=== PATIENT | female | born 1965 | race Two or more races ===

== ENCOUNTER 2016-08-02 21:47 | Emergency (ER) | payer MEDICAID ==
[2016-08-02] MEDS ORDERED: HYDROmorphone 1 mg/mL 1mL Syr ONE (22:07)
[2016-08-02 22:14] LABS: % BASOPHILS 0.9 % (0.0-2.0); % EOSINOPHILS 0.7 % (0.0-5.0); % LYMPHOCYTES 12.7 % (20.0-50.0); % MONOCYTES 4.6 % (2.0-10.0); % NEUTROPHILS 81.1 % (40.0-80.0); HEMATOCRIT 42.6 % (35.0-45.0); HEMOGLOBIN 14.5 gm/dL (11.7-15.5); MEAN CORPUSCULAR HEMOGLOBIN 29.7 pg (27.0-31.0); MEAN CORPUSCULAR HGB CONC 34.1 pg (28.0-36.0); MEAN PLATELET VOLUME 7.8 fl; NEUTROPHILE ABSOLUTE 8.6 Th/cmm (1.8-8.0); PLATELET COUNT 169 Th/cmm (150-400); RED BLOOD COUNT 4.89 Mil/cmm (3.80-5.10); RED CELL DISTRIBUTION WIDTH 11.9 % (11.5-20.0); WHITE BLOOD COUNT 10.6 Th/cmm (4.8-10.8)
[2016-08-02] MEDS: HYDROmorphone 1 mg/mL 1mL Syr IM STA (22:16)
--- NOTE | 2016-08-02 22:16 | ED Physician Chart ---
Chief Complaint/HPI - Patient Information Date Seen:: 08/02/16 Time Seen:: 22:00 Chief Complaint:: RIGHT KNEE PAIN History of Present Illness:: THIS IS A 51 YO FEMALE WITH RECURRENT THAT STARTED AGAIN TODAY (01/04) RIGHT KNEE PAIN AND NOW UNABLE TO WALK ON IT. SHE ALSO STATES THAT SHE HAS HYPERTENSION AND DIABETES BUT STOPPED TAKING HER MEDICATIONS. SHE STATES THAT THE KNEE HAS BEEN OPERATED ON IN THE PAST. SHE DENIES FEVER, CHEST PAIN AND ABDOMINAL PAIN. Allergies:: Allergies Allergy/AdvReac Type Severity Reaction Status Date / Time No Known Allergies Allergy Verified 08/02/16 21:57 Vitals:: Vital Signs - 8 hr 08/02/16 21:50 Temp 98.1 F HR 80 RR 20 BP 182/89 O2 Sat % 97 Historian:: Patient Review:: Nurse's Note Reviewed Review of Systems - Review of Systems General/Constitutional: No fever, No chills, No weight loss, No weakness, No diaphoresis, No edema, No loss of appetite Skin: No skin lesions, No rash, No bruising Head: No headache, No light-headedness Eyes: No loss of vision, No pain, No diplopia ENT: No earache, No nasal drainage, No sore throat, No tinnitus Neck: No neck pain, No swelling, No thyromegaly, No stiffness, No mass noted Cardio Vascular: No chest pain, No palpitations, No PND, No orthopnea, No edema Pulmonary: No SOB, No cough, No sputum, No wheezing GI: No nausea, No vomiting, No diarrhea, No pain, No melena, No hematochezia, No constipation, No hematemesis G/U: No dysuria, No frequency, No hematuria Musculoskeletal: Bone or joint pain, No back pain, No muscle pain Endocrine: No polyuria, No polydipsia Psychiatric: No prior psych history, No depression, No anxiety, No suicidal ideation Hematopoietic: No bruising, No lymphadenopathy Allergic/Immuno: No urticaria, No angioedema Neurological: No syncope, No focal symptoms, No weakness, No paresthesia, No headache, No seizure, No dizziness, No confusion, No vertigo Past Medical History - Past Medical History Obtainable: Yes Past Medical History: HTN, DM Family History: None Social History: Non Smoker, No Alcohol, No Drug Use, Employed Surgical History: Cholecystectomy, other (RIGHT KNEE SURGERY) Family Medical History - Family Member Mother History Unknown: Yes Ethnicity: Living Status: Hx Family Hypertension: Yes Hx Family Diabetes: Yes Physical Exam - Physical Examination General/Constitutional: Awake, Well-developed, well-nourished, Alert, No distress, GCS 15, Non-toxic appearing, Ambulatory Head: Atraumatic Eyes: Lids, conjuctiva normal, PERRL, EOMI Skin: Nl inspection, No rash, No skin lesions, No ecchymosis, Well hydrated, No lymphadenopathy ENMT: External ears, nose nl, Nasal exam nl, Lips, teeth, gums nl Neck: Nontender, Full ROM w/o pain, No JVD, No nuchal rigidity, No bruit, No mass, No stridor Respiratory: Nl effort/Exclusion, Clear to Auscultation, No Wheeze/Rhonchi/Rales Cardio Vascular: RRR, No murmur, gallop, rubs, NL S1 S2 GI: No tenderness/rebounding/guarding, No organomegaly, No hernia, Normal BS's, Nondistended, No mass/bruits, No McBurney tenderness : No CVA tenderness Extremities: Full ROM, normal strength in all extremities, No edema, Normal digits & nails Other Extremities comments:: THE RIGHT KNEE IS SWOLLEN AND TENDER WITH PAINFUL DECREASE ROM. Neuro/Psych: Alert/oriented, DTR's symmetric, Normal sensory exam, Normal motor strength, Judgement/insight normal, Mood normal, Normal gait, No focal deficits Misc: normal gait, Normal back, No paraspinal tenderness ED Septic Shock - . Is Septic Shock (SBP<90, OR Lactate>4 mmol\L) present?: No - <6hrs of presentation: Vital Signs: Vital Signs - 8 hr 08/02/16 21:50 Temp 98.1 F HR 80 RR 20 BP 182/89 O2 Sat % 97
[2016-08-02 22:31] LABS: INR 0.91 (0.5-1.4); PROTHROMBIN TIME (TEST) 9.5 SECONDS (9.5-11.5)
[2016-08-02 22:32] LABS: CHOLESTEROL 195 mg/dL (<200); TRIGLYCERIDES 157 mg/dL (<150)
[2016-08-02 22:34] LABS: ALB/GLOB RATIO 1.1 (1.0-1.8); ALKALINE PHOSPHATASE 140 U/L (34-104); ANION GAP 9.6 (7.0-16.0); BILIRUBIN,TOTAL 0.6 mg/dL (0.3-1.0); BUN - UREA NITROGEN 22 mg/dL (7-25); BUN/CREATININE RATIO 24.4; CALCIUM SERUM 9.7 mg/dL (8.6-10.3); CARBON DIOXIDE 21.5 mEq/L (21.0-31.0); CHLORIDE 103 mEq/L (98-107); CREATININE - SERUM 0.9 mg/dL (0.6-1.2); POTASSIUM SERUM 3.1 mEq/L (3.5-5.1); SGOT 22 U/L (13-39); SGPT/ALT 24 U/L (7-52); SODIUM SERUM 131 mEq/L (136-145)
[2016-08-02 22:47] LABS: GLUCOSE 459 mg/dL (70-105)
[2016-08-02] MEDS ORDERED: Potassium Chloride 20 mEq ER Tab PO ONE (22:59)
[2016-08-02] MEDS ORDERED: INSULIN HUMAN REGULAR 100 UNITS/ML UNIT ONE (23:01)
[2016-08-02] MEDS: Potassium Chloride 20 mEq ER Tab PO ONE (23:09)
[2016-08-02] MEDS: INSULIN HUMAN REGULAR 100 UNITS/ML UNIT SUBQ ONE (23:10)
[2016-08-02 23:26] LABS: URINE BILIRUBIN NEGATIVE (NEGATIVE); URINE BLOOD TRACE (NEGATIVE); URINE COLOR YELLOW; URINE GLUCOSE (UA) 500 mg/dL (NEGATIVE); URINE KETONE NEGATIVE (NEGATIVE); URINE PH 5.5; URINE PROTEIN >300 mg/dL (NEGATIVE); URINE UROBILINOGEN 0.2 E.U./dL (0.2 - 1.0); URINE WBC 0-2 /hpf (0-5)
[2016-08-02 23:27] LABS: URINE BACTERIA OCCASIONAL /hpf (NONE SEEN); URINE EPITHELIAL CELLS FEW /lpf (FEW)
--- NOTE | 2016-08-03 11:06 | Diagnostic Imaging Report ---
Portable chest x-ray History: Pain Allowing for portable technique the heart size is normal. No focal pulmonary parenchymal processes. No hilar or mediastinal abnormalities. Impression: No acute abnormalities.
--- NOTE | 2016-08-03 11:07 | Diagnostic Imaging Report ---
Right knee (3 views) HISTORY: Pain No acute bony abnormalities. No fractures. Joint spaces appear normal. Suggestion of a suprapatellar effusion. Clinical correlation needed. A calcific density is noted adjacent to the anterior superior margin of the patella probably on a dystrophic basis. IMPRESSION: 1. No acute bony abnormalities 2. Question suprapatellar effusion. Clinical correlation needed 3. Small calcification adjacent to the anterior superior margin of the patella most likely on a dystrophic basis.
== END 2016-08-03 00:20 | disposition home or self-care (01) ==
LOC: ER 21:47
DX: M25.561 Pain in right knee (principal); I10 Essential (primary) hypertension; E11.9 Type 2 diabetes mellitus without complications; Z90.49 Acquired absence of other specified parts of digestive tract
CPT/HCPCS: 36415-UA; 71010-TC; 73562-TC-RT; 80053-TC; 80061-TC; 81001-TC; 82948-90; 83036-90; 84443-TC; 84484-TC; 85025-TC; 85610-TC; 85730-TC; 86592-TC; J1170; J1815; J2405; Z7610

== ENCOUNTER 2016-08-09 12:19 | Emergency (ER) | payer MEDICAID ==
--- NOTE | 2016-08-09 13:35 | ED Physician Chart ---
Chief Complaint/HPI - Patient Information Date Seen:: 08/09/16 Time Seen:: 13:00 Chief Complaint:: acute exacerbation of chronic right knee pain History of Present Illness:: Patient was seen at this facility one week ago and diagnosed with acute exacerbation of chronic right knee arthritis and was discharged with 1 week of ibuprofen therapy which apparently has not changed the patient's condition. There has been no worsening of the patient's condition, no fever or chills, no joint redness or increased heat, but the underlying soreness with ambulation and intermittent swelling has continued. The patient relates a history of chronic knee problems since the age of 6 with an arthroscopic procedure done in the distant past. 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 No other joints are affected. Allergies:: Allergies Allergy/AdvReac Type Severity Reaction Status Date / Time No Known Allergies Allergy Verified 08/09/16 12:44 Vitals:: Vital Signs - 8 hr 08/09/16 08/09/16 12:33 13:04 Temp 98.3 F 98.3 F HR 59 59 RR 16 16 BP 191/94 191/94 O2 Sat % 98 98 Historian:: Patient, Medical Records Review:: Nurse's Note Reviewed Review of Systems - Review of Systems General/Constitutional: No fever (the review of systems is otherwise unremarkable except those features mentioned in the history of present illness.) Past Medical History - Past Medical History Obtainable: Yes Past Medical History: HTN, DM (chronic right knee pain), Other Family History: Diabetes Melitus, HTN Social History: Non Smoker, No Alcohol, Employed Surgical History: other (arthroscopic surgery right knee) Family Medical History - Family Member Mother Ethnicity: Living Status: Hx Family Hypertension: Yes Hx Family Diabetes: Yes Physical Exam - Physical Examination General/Constitutional: Awake, Well-developed, well-nourished, Alert, GCS 15, Non-toxic appearing, Ambulatory Head: Atraumatic Skin: No rash, Well hydrated Extremities: Normal digits & nails Other Extremities comments:: Physical exam findings are limited to the right knee which is remarkable for trace visible and palpable effusion. no evidence of discoloration, erythema, increased palpable heat, and the hip and ankle on the right side are unaffected. 100% neurovascular integrity to the right lower extremity. flexion and extension of the right knee produce mild tenderness generally in the knee. Popliteal fossa is nontender and the hamstrings are normal. ED Septic Shock - . Is Septic Shock (SBP<90, OR Lactate>4 mmol\L) present?: No - <6hrs of presentation: Vital Signs: Vital Signs - 8 hr 08/09/16 08/09/16 12:33 13:04 Temp 98.3 F 98.3 F HR 59 59 RR 16 16 BP 191/94 191/94 O2 Sat % 98 98 Reassessment (Disposition) - Reassessment Reassessment Condition:: Unchanged - Diagnosis Diagnosis:: Acute exacerbation of chronic right knee pain secondary to arthritis. - Aftercare/Follow up Instructions Aftercare/Follow-Up Instructions:: Counseled pt regarding lab results/diagnosis & need follow up, Refer to Discharge Instructions - Patient Disposition Discharge/Transfer:: Home (recommend cont nsaid with food, see pmd for add meds or ortho referral.) ED Discharge Plan - Patient Disposition Instructions: Arthritis, Nonspecific, [id number], Chronic Pain Accepting Physician: Torin Barajas [Active] - Forms: Work Release Form
== END 2016-08-09 13:05 | disposition home or self-care (01) ==
LOC: ER 12:19
DX: M17.11 Unilateral primary osteoarthritis, right knee (principal); I10 Essential (primary) hypertension; E11.9 Type 2 diabetes mellitus without complications
CPT/HCPCS: Z7502